=== PATIENT | male | born 1985 | race Caucasian/White ===

== ENCOUNTER 2021-09-01 04:57 | Observation (INO) ==
[2021-09-01 05:27] LABS: Basophils % 0.6 %; Eosinophils # 0.3 K/mcL (0.0-0.6); Eosinophils % 3.8 %; Hematocrit 43.8 % (37.5-50.1); Hemoglobin 15.3 g/dL (12.9-16.9); Immature Granulocytes % 0.4 % (0-4); Lymphocytes % 29.7 %; Mean Corpuscular HGB Conc 34.9 g/dL (31.6-35.5); Mean Corpuscular Volume 85.9 fL (83.0-100.0); Mean Platelet Volume 10.2 fL (9.4-12.4); Monocytes # 0.5 K/mcL (0.0-1.3); Monocytes % 6.6 %; Platelet Count 175 K/mcL (140-400); Red Cell Distribution Width 11.9 % (11.5-14.5); Segmented Neutrophils % 58.9 %; White Blood Count 6.8 K/mcL (4.3-11.1)
[2021-09-01 05:40] LABS: Activated Partial Thrombo Time 37.1 Seconds (26.0-36.0)
[2021-09-01 05:46] LABS: BUN/Creatinine Ratio 21 (6-26); Blood Urea Nitrogen 21 mg/dL (6-20); Calcium 9.4 mg/dL (8.6-10.3); Carbon Dioxide 28 mEq/L (23-29); Chloride 105 mEq/L (98-107); Glucose 109 mg/dL (70-105); Osmolality,Calculated 292 (280-300); Sodium 139 mEq/L (136-145); eGFR For African Americans > 60 (> 60); eGFR For Non-African Americans > 60 (> 60)
[2021-09-01 05:47] LABS: Troponin I < 0.03 ng/mL (< 0.04)
[2021-09-01] MEDS ORDERED: Aspirin 81 MG TAB.CHEW PO ONE (06:23)
[2021-09-01] MEDS ORDERED: Nitroglycerin 0.4 MG TAB.SUBL SL ONE ×2 (06:24→07:14)
[2021-09-01 06:57] LABS: Influenza A PCR Negative (Negative); Influenza B PCR Negative (Negative); Resp. Syncytial Virus PCR Negative (Negative); SARS-CoV-2 by PCR (In House) Negative (Negative)
[2021-09-01] MEDS ORDERED: Naloxone 0.4 MG/ML INJ IVP PRN (07:42)
[2021-09-01] MEDS ORDERED: Ondansetron 4 MG/2 ML VIAL IVP PRN (07:42)
[2021-09-01] MEDS ORDERED: Nitroglycerin 0.4 MG TAB.SUBL SL PRN (07:45)
[2021-09-01] MEDS ORDERED: Perflutren Lipid Microsphere 1.3 ML in 0.9 % Sodium Chloride 8.7 ML IVP PRN (07:46)
[2021-09-01] MEDS ORDERED: Regadenoson 0.4 MG/5 ML SYRINGE IVP ONE ×2 (08:47→12:10)
[2021-09-01 11:46] LABS: Chol/HDL Ratio 4.3 (0-4.9)
[2021-09-01 12:57] LABS: Amphetamine Screen,Urine Negative ng/mL (Cutoff=1000); Barbiturate Screen,Urine Negative ng/mL (Cutoff=200); Benzodiazepines Screen,Urine Negative ng/mL (Cutoff=200); Cannabinoid Screen,Urine Negative ng/mL (Cutoff = 50); Cocaine Screen,Urine Negative ng/mL (Cutoff= 300); Opiate Screen,Urine Negative ng/mL (Cutoff=300); Phencyclidine Screen,Urine Negative ng/mL (Cutoff=25)
[2021-09-01 13:56] LABS: Estimated Average Glucose 97 mg/dl
[2021-09-02 02:01] LABS: BUN/Creatinine Ratio 25 (6-26); Blood Urea Nitrogen 22 mg/dL (6-20); Calcium 9.1 mg/dL (8.6-10.3); Carbon Dioxide 25 mEq/L (23-29); Chloride 107 mEq/L (98-107); Glucose 95 mg/dL (70-105); Osmolality,Calculated 291 (280-300); Potassium 3.7 mEq/L (3.5-5.1); Sodium 139 mEq/L (136-145); eGFR For African Americans > 60 (> 60); eGFR For Non-African Americans > 60 (> 60)
[2021-09-02 02:12] LABS: Thyroid Stimulating Hormone 1.906 mcIU/mL (0.340-5.600)
[2021-09-02] MEDS ORDERED: Isovue-370 500 ML BOTTLE IVP ONE (09:57)
[2021-09-02] MEDS ORDERED: *HR* Metoprolol 5 MG/5 ML VIAL IVP PRN (09:57)
[2021-09-02] MEDS ORDERED: Metoprolol 100 MG TABLET PO ONE (10:19)
[2021-09-02] MEDS ORDERED: IVABRADINE HCL 7.5 MG TABLET PO STA (10:19)
[2021-09-02 11:20] VITALS: TEMP 98.2; O2SAT 97
[2021-09-02] MEDS ORDERED: Nitroglycerin Spray 4.9 GM BOTTLE TL PRN (11:37)
[2021-09-02 13:30] VITALS: PULSE 64
[2021-09-02 13:31] VITALS: BP 103/72
[2021-09-03] MEDS ORDERED: DilTIAZem CD (24hr) 120 MG CAP.ER.24H PO SCH (09:00)
== END 2021-09-02 15:28 | disposition home or self-care (01) ==
LOC: EMEROOARM 04:57 → 3BNU 04:57
PROVIDERS: ADMIT Student in an Organized Health Care Education/Training Program; ATTEND Student in an Organized Health Care Education/Training Program